=== PATIENT | female | born 1995 | race Caucasian/White ===

== ENCOUNTER 2020-01-08 21:37 | Emergency (ER) | payer SELFPAY ==
[~2020-01-08] VITALS: Ht 162.6 cm; Wt 111.6 kg
[2020-01-08 21:43] VITALS: Ht 162.6 cm; Wt 111.6 kg
[2020-01-08 22:06] LABS: BASOPHILS 0.4 % (0-2); EOSINOPHILS 1.5 % (0-7); HEMATOCRIT 42.2 % (36.0-48.0); HEMOGLOBIN 13.9 g/dL (12-16); IMMATURE GRANULOCYTES 0.2 % (0-5); MCH 28.8 pg (26.0-34.0); MCHC 32.9 g/dL (31.0-37.0); MCV 87.4 fL (80.0-100.0); MEAN PLATELET VOLUME 10.2 fL (7.4-10.4); MONOCYTES 6.1 % (2-11); NEUTROPHILS 71.8 % (40-80); RBC 4.83 10x6/uL (4.00-5.40); RDW 12.9 % (11.5-14.5); WBC 13.7 10x3/uL (4.8-10.8)
[2020-01-08 22:07] LABS: PLATELET COUNT 283 10x3/uL (130-400)
[2020-01-08 22:08] LABS: BILIRUBIN NEGATIVE (NEGATIVE); GLUCOSE NEGATIVE (NEGATIVE); KETONE NEGATIVE (NEGATIVE); NITRITE NEGATIVE (NEGATIVE); UROBILINOGEN NORMAL (NORMAL)
[2020-01-08 22:15] LABS: HCG URINE NEGATIVE (NEGATIVE)
[2020-01-08 22:18] LABS: CALCIUM 9.3 mg/dL (8.5-10.1); CARBON DIOXIDE 30.5 mmol/L (21.0-32.0); POTASSIUM - SERUM 3.5 mmol/L (3.5-5.1)
[2020-01-08 22:23] LABS: BILIRUBIN - TOTAL 0.34 mg/dL (0.2-1.3); PROTEIN - SERUM 7.6 g/dL (6.4-8.2)
[2020-01-09] MEDS ORDERED: DICLOFENAC SODI50 MG PO (00:39)
[2020-01-09 03:00] VITALS: BP 123/80
== END 2020-01-09 03:00 | disposition home or self-care (01) ==
LOC: D.ER 21:37
PROVIDERS: Emergency Medicine
DX: R10.31 Right lower quadrant pain (principal); N76.0 Acute vaginitis; D72.829 Elevated white blood cell count, unspecified; N20.0 Calculus of kidney; N89.8 Other specified noninflammatory disorders of vagina; R11.0 Nausea; R53.81 Other malaise